=== PATIENT | female | born 1980 | race Caucasian/White ===

== ENCOUNTER 2020-07-08 08:51 | Outpatient (CLI) | payer OTHER, SELFPAY ==
[2020-07-08 13:08] LABS: Anion Gap 4 mmol/L (8-16); Blood Urea Nitrogen 6 mg/dL (7-17); Calcium 8.7 mg/dL (8.4-10.2); Carbon Dioxide 32 mmol/L (22-30); Chloride 102 mmol/L (98-107); Estimated Glomerular Filt Rate > 60; Glucose 74 mg/dL (65-105); Potassium 4.4 mmol/L (3.4-5.0); Sodium 138 mmol/L (137-145)
[2020-07-08 13:30] LABS: Free T4 Free Thyroxine 1.51 ng/mL (0.78-2.19)
[2020-07-08 13:40] LABS: Thyroid Stimulating Hormone 0.289 uIU/mL (0.465-4.680)
[2020-07-12 04:22] LABS: Thyroglobulin 0.1 ng/mL (2.8-40.9); Thyroglobulin Antibodies <1 IU/mL (<=1)
[2020-07-12 08:09] LABS: Triiodothyronine T3 Free 3.2 pg/mL (2.3-4.2)
== END 2020-07-08 08:52 | disposition home or self-care (01) ==
PROVIDERS: PCP Family Medicine; Visit Provider Internal Medicine Endocrinology, Diabetes & Metabolism
DX: E03.9 Hypothyroidism, unspecified (principal); E04.9 Nontoxic goiter, unspecified; C73 Malignant neoplasm of thyroid gland; R79.89 Other specified abnormal findings of blood chemistry; R30.9 Painful micturition, unspecified
CPT/HCPCS: 36415; 80048; 82306; 84432; 84439; 84443; 84481; 86800

== ENCOUNTER 2021-01-18 08:44 | Outpatient (CLI) | payer OTHER, SELFPAY ==
[2021-01-18 17:26] LABS: Free T4 Free Thyroxine 0.99 ng/mL (0.78-2.19)
== END 2021-01-18 08:45 | disposition home or self-care (01) ==
LOC: ANHWCLAB 08:48
PROVIDERS: PCP Family Medicine; Visit Provider Internal Medicine Endocrinology, Diabetes & Metabolism
DX: E89.0 Postprocedural hypothyroidism (principal); C73 Malignant neoplasm of thyroid gland
CPT/HCPCS: 36415; 84439; 84443

== ENCOUNTER 2021-03-29 08:34 | Outpatient (CLI) | payer OTHER, SELFPAY ==
[2021-03-29 13:43] LABS: Free T4 Free Thyroxine 1.31 ng/mL (0.78-2.19)
[2021-04-01 05:53] LABS: Thyroglobulin 0.1 ng/mL (2.8-40.9); Thyroglobulin Antibodies <1 IU/mL (<=1)
== END 2021-03-29 08:35 | disposition home or self-care (01) ==
LOC: ANHWCLAB 08:37
PROVIDERS: PCP Family Medicine; Referring Provider Internal Medicine Endocrinology, Diabetes & Metabolism; Visit Provider Internal Medicine Endocrinology, Diabetes & Metabolism
DX: C73 Malignant neoplasm of thyroid gland (principal); E89.0 Postprocedural hypothyroidism
CPT/HCPCS: 36415; 84432; 84439; 84443; 86800

== ENCOUNTER 2021-12-20 08:12 | Outpatient (CLI) | payer OTHER, SELFPAY ==
[2021-12-20 09:32] LABS: Thyroid Stimulating Hormone 0.364 uIU/mL (0.465-4.680)
[2021-12-20 10:40] LABS: Free T4 Free Thyroxine 1.78 ng/mL (0.78-2.19)
[2021-12-20 16:42] LABS: Vitamin D 25 Hydroxy 28.2 ng/mL
== END 2021-12-20 08:13 | disposition home or self-care (01) ==
PROVIDERS: PCP Family Medicine; Visit Provider Internal Medicine Endocrinology, Diabetes & Metabolism
DX: C73 Malignant neoplasm of thyroid gland (principal); E89.0 Postprocedural hypothyroidism; R79.89 Other specified abnormal findings of blood chemistry; E55.9 Vitamin D deficiency, unspecified
CPT/HCPCS: 36415; 82306; 84439; 84443

== ENCOUNTER 2022-01-06 07:38 | Outpatient (CLI) | payer OTHER, SELFPAY ==
--- NOTE | ~2022-01-06 | MM_ITS ---
EXAMINATION: MM screening [place] w jason HISTORY: Screening mammogram TECHNIQUE: Craniocaudal and mediolateral oblique 3-D tomosynthesis images were obtained and synthetic 2-D images were generated. CAD analysis was submitted and interpreted. COMPARISON: bilateral diagnostic mammography 07/20/2017, 06/01/2016 bilateral screening mammogram examinations BREAST PARENCHYMAL COMPOSITION: The breasts are almost entirely fatty. FINDINGS: Minimal bilateral benign calcification. There is no evidence of suspicious mass, calcificat ion, or architectural distortion to suggest malignancy in either breast. There has been no suspicious interval change. IMPRESSION: 1. No mammographic evidence of malignancy. 2. Recommend routine screening mammography in one year. BI-RADS Category 1: Negative Reviewed, dictated and finalized at location A.
== END 2022-01-06 07:39 | disposition home or self-care (01) ==
PROVIDERS: PCP Family Medicine; Visit Provider Family Medicine
DX: Z12.31 Encounter for screening mammogram for malignant neoplasm of breast (principal)
CPT/HCPCS: 77063; 77067

== ENCOUNTER 2022-02-24 08:09 | Outpatient (CLI) | payer OTHER, SELFPAY ==
[2022-02-24 09:53] LABS: Free T4 Free Thyroxine 1.32 ng/mL (0.78-2.19)
[2022-02-27 03:20] LABS: Thyroglobulin 0.1 ng/mL (2.8-40.9); Thyroglobulin Antibodies <1 IU/mL (<=1)
== END 2022-02-24 08:10 | disposition home or self-care (01) ==
LOC: ANHLAB 08:12
PROVIDERS: PCP Family Medicine; Visit Provider Internal Medicine Endocrinology, Diabetes & Metabolism
DX: E89.0 Postprocedural hypothyroidism (principal); C73 Malignant neoplasm of thyroid gland
CPT/HCPCS: 36415; 84432; 84439; 84443; 86800

== ENCOUNTER 2022-06-29 09:29 | Outpatient (CLI) | payer OTHER, SELFPAY ==
[2022-06-29 17:21] LABS: Free T4 Free Thyroxine 1.83 ng/mL (0.78-2.19); Vitamin D 25 Hydroxy 36.2 ng/mL
[2022-06-29 17:28] LABS: Thyroid Stimulating Hormone 0.072 uIU/mL (0.465-4.680)
== END 2022-06-29 09:30 | disposition home or self-care (01) ==
LOC: ANHWCLAB 09:30
PROVIDERS: PCP Family Medicine; Visit Provider Internal Medicine Endocrinology, Diabetes & Metabolism
DX: R79.89 Other specified abnormal findings of blood chemistry (principal); C73 Malignant neoplasm of thyroid gland
CPT/HCPCS: 36415; 82306; 84439; 84443; 86800

== ENCOUNTER 2024-10-02 08:24 | Outpatient (CLI) | payer OTHER, SELFPAY ==
--- NOTE | ~2024-10-02 | MM_ITS ---
EXAMINATION: MM screening [place] BI w jason HISTORY: Screening TECHNIQUE: Craniocaudal and mediolateral oblique 3-D tomosynthesis images were obtained and synthetic 2-D images were generated. CAD analysis was submitted and interpreted. COMPARISON: Comparison to multiple prior studies sequentially, with oldest reviewed study dated 11/2016. BREAST PARENCHYMAL COMPOSITION: Not dense: There are scattered areas of fibroglandular density. FINDINGS: There is no evidence of suspicious mass, calcification, or architectural distortion to sugg est malignancy in either breast. There has been no suspicious interval change. IMPRESSION: 1. No mammographic evidence of malignancy. 2. Recommend routine screening mammography in one year. BI-RADS Category 1: Negative Reviewed, dictated and finalized at location []
--- OUTSIDE RECORDS SUMMARY | 2024-10-02 08:41 | XMS_ITS | Clinical Summary ---
Author Organization [facility] Address [address] [place] [address] Phone Care Team Providers Care Zinc Etcher Name Role Phone Foreign Flores MD Primary Care Provider [phone] Allergies No known active allergies Medications albuterol HFA 90 mcg inhaler Take 2 Puffs by inhalation every 6 hours as needed PRN. Active HYDROcodone-mukesh taminophen (NORCO) 5-325 mg tablet Take 1 Tablet by mouth every 4 hours as needed for Pain, Mild (For Pain Scale 1-3). Max Daily Amount: 6 Tablet 30 Tablet 0 6 Active liothyronine (CYTOMEL) 25 mcg Tablet Take 1 Tablet (25 mcg) by mouth 2 times daily. 60 Tablet 0 6 Active calcium-choleca lciferol (OS-ALLYN 500+D) 500 mg(1,250mg) -200 unit tablet Take 2 Tablet by mouth every 6 hours. 200 Tablet 0 6 Active Active Problems Problem Noted Date Diagnosed Date Thyroid malignant neoplasm 11/03/2015 Thyroid cancer 10/15/2015 Tobacco use 10/15/2015 Family History Medical History Relation Name Comments Hypertension Father Relation Name Status Comments Father Social History Tobacco Use Types Packs/Day Years Used Date Smoking Tobacco: Every Day Cigarettes 0.5 15 Alcohol Use Standard Drinks/Week Comments Yes 0 (1 standard drink = 0.6 oz pur e alcohol) RARE 2/YEAR Comments No Sex and Gender Information Value Date Recorded Sex Assigned at Not on file Legal Sex Female 8:33 AM CDT Gender Identity Not on file Sexual Orientation Not on file Last Filed Vital Signs Vital Sign Reading Time Taken Comments Blood Pressure 102/66 11/03/2015 12:11 PM CDT Pulse 60 11/03/2015 12:11 PM CDT Temperature 36.6 C (97.8 F) 11/03/2015 12:11 PM CDT Respiratory Rate 16 11/03/2015 12:11 PM CDT Oxygen Saturation 93% 11/03/2015 12:11 PM CDT Inhaled Oxygen Concentration - - Weight 55.4 kg (122 lb 3.2 oz) 11/02/2015 9:13 A M CDT Height 154.9 cm (5' 1) 10/27/2015 12:28 PM CDT Body Mass Index 23.09 10/27/2015 12:28 PM CDT Plan of Treatment Health Maintenance Due Date Last Done Comments DTAP/TDAP/TD VACCINES (1 - Tdap) 09/22/1998 HEPATITIS B VACCINES (1 of 3 - 19+ 3-dose series) 09/22/1998 HPV/Cotest (21-29) 09/22/2000 CERVICAL CANCER SCREENING 09/22/2009 HPV/Cotest (30-65) 09/22/2009 PAP SMEAR 09/22/2009 BREAST CANCER SCREENING 2019 INFLUENZA VACCINE (#1) 2023 COLORECTAL SCREENING 09/22/2024 Colorectal Cancer Screening 09/22/2024 FIT-DNA Q 3 years 09/22/2024 FIT/FOBT Q 1 year 09/22/2024 Flex Sig/CT Colonography Q 5 years 09/22/2024 HPV VACCINES Aged Out No longer eligi ble based on patient's age to complete this topic Insurance Advance Directives For more information, please contact: [phone] * Full Code (Latest Code Status on File) Date Activated Date Inactivated Comments 11/02/2015 4:08 PM 11/03/2015 4:03 PM * Full Code Date Activated Date Inactivated Comments 11/02/2015 9:14 AM 11/02/2015 4:08 PM Care Teams Zinc Etcher Relationship Specialty Start Date End Date Foreign Flores MD [address] [place] [address] PCP - General Family Practice 10/15/15
== END 2024-10-02 08:25 | disposition home or self-care (01) ==
LOC: ANHIMG 08:26
PROVIDERS: PCP Family Medicine; Visit Provider Family Medicine
DX: Z12.31 Encounter for screening mammogram for malignant neoplasm of breast (principal)
CPT/HCPCS: 77063; 77067